=== PATIENT | male | born 1985 | race Hispanic/Latino ===

== ENCOUNTER → 2025-04-01 | Outpatient (CLI) | payer OTHER ==
--- NOTE | 2025-04-01 16:56 | HMCSR ---
APPROVED REPORT EXAM: Two-dimensional and M-mode echocardiogram with Doppler and color Doppler. INDICATION ICD: I25.9 Chronic ischemic heart disease, unspecified 2D Dimensions RVDd3.9 cmLVEF(%)69.3 (>50%)LVED Vol(simp.)105.0 mL IVSd0.9 (0.7-1.1cm)FS(%)39 %LVES Vol(simp.)46.0 mL LVDd4.8 (3.8-5.6cm)LA (2D)4.3 (1.6-4.0cm)LVEF(%, simp.)56 % PWd1.0 (0.7-1.1cm)Ao Root(2D)3.4 (2.0-3.7cm)LA ESV INDEX (BP)27.68 mL/m2 IVSs1.2 cmLVOT diam2.3 (1.8-2.4cm) LVDs2.9 (2.5-4.0cm) PWs1.7 cm M-Mode Dimensions EPSS0.6 cm LA (MM)4.6 (1.6-4.0cm) Ao Root(MM)3.2 (2.0-3.7cm) Aortic Valve AoV Vmax1.2 m/Hilario Peak GR5.6 mmHgLVOT Vmax0.9 m/s AoV VTI0.2 mAo Mean GR3.5 mmHgLVOT VTI0.17 m MARLENA (VMAX)2.91 cm2AVA (VTI) 3.7 cm2 Mitral Valve MV E Vmax62.6 cm/sDECEL Rgts387 ms MV A Vmax50.9 cm/sP 1/2 T36 ms E/A ratio1.2MVA (PHT)6.1 cm2 TDI E/E' Medial9.2E/E' Lateral5.5 Medial E' Peak V6.77 cm/sLateral E' Peak V11.48 cm/s Pulmonary Valve PV Vmax1.3 m/sPV VTI0.22 mPV Mean GR3.7 mmHg PV Peak GR6.4 mmHg Tricuspid Valve RAP (EST) 8 mmHgRVSP8.0 mmHg Left Ventricle The left ventricle is normal size. There is normal LV segmental wall motion. There is normal left adarsh tricular wall thickness. LVEF is 55-60%. The left ventricular diastolic function is normal. Right Ventricle The right ventricle is normal size. The right ventricular systolic function is normal. Atria The left atrium size is normal. The right atrium size is normal. Aortic Valve The aortic valve is normal in structure. No aortic regurgitation is present. There is no aortic valvu lar stenosis. Mitral Valve The mitral valve is normal in structure. There is trivial mitral valve regurgitation noted. There is no mitral valve stenosis. Tricuspid Valve The tricuspid valve is normal in structure. There is no tricuspid valve regurgitation noted. Pulmonic Valve The pulmonary valve is normal in structure. There is no pulmonic valvular regurgitation. Great Vessels The aortic root is normal in size. IVC is not well visualized. Pericardium There is no pericardial effusion. Other Information Quality : Adequate Conclusion LVEF is 55-60%. There is normal LV segmental wall motion. The right ventricular systolic function is normal. The aortic root is normal in size. There is no pericardial effusion.
== END | disposition home or self-care (01) ==
LOC: RAH 12:05
PROVIDERS: ATTEND Chiropractor
DX: I25.9 Chronic ischemic heart disease, unspecified (principal)
CPT/HCPCS: 93306